=== PATIENT | female | born 1985 | race Caucasian/White ===

== ENCOUNTER 2021-05-21 21:01 | Emergency (ER) | payer MEDICAID, SELFPAY ==
[2021-05-21 21:17] VITALS: BP 134/84; PULSE 113; RESP 20; TEMP 36.4; O2SAT 97; BMI 30.1
[2021-05-21 22:03] LABS: MANUAL DIFF FLAG NO
[2021-05-21 22:04] LABS: Basophils Percent Auto 0.2 % (0-2); Eosinophils Absolute Auto 0.1 X10*3/uL (0.0-0.4); Eosinophils Percent Auto 0.6 % (0-4); Hematocrit 34.6 % (37.0-47.0); Hemoglobin 11.9 g/dl (12.0-16.0); Imm Gran Abs Auto 0.15 X10*3/uL (0.00-0.03); Imm Gran Pct Auto 1.4 % (0.0-0.4); Lymphocytes Percent Auto 9.6 % (20-40); Mean Corpuscular HGB Conc 34.4 g/dl (31.0-35.0); Mean Corpuscular Hemoglobin 28.5 pg (27.0-33.0); Mean Platelet Volume 10.2 fL (9.4-12.3); Monocytes Absolute Auto 0.8 X10*3/uL (0.1-1.2); Monocytes Percent Auto 7.8 % (2-11); Neutrophils Absolute Auto 8.5 x10*3/uL (2.0-8.3); Neutrophils Percent Auto 80.4 % (45-73); Platelet Count 238 X10*3/uL (160-400); Red Blood Count 4.17 X10*6/uL (4.20-5.50); White Blood Count 10.6 X10*3/uL (4.8-10.8)
[2021-05-21 22:08] LABS: Appearance Urine HAZY; Color Urine YELLOW; Glucose Urine UA NEG (NEG); Leukocyte Esterase Urine NEG (NEG); Nitrite Urine NEG (NEG); Specific Gravity - Urine 1.025 (1.005-1.025); UACC Culture Trigger NO; Urine Blood 2+ (NEG); Urine Ketones 15 MG/DL (NEG); Urine Protein 2+ MG/DL (NEG-TRACE)
[2021-05-21 22:12] LABS: Bacteria Urine 3+ /LPF; Granular Casts Urine 0-2 /LPF; Squamous Epithelial Cell Urine 2+ /LPF; WBC Urine 0-2 /HPF (0-4)
[2021-05-21 22:21] LABS: Alanine Aminotransferase 22 U/L (0-31); Albumin Level 4.3 g/dL (3.5-5.0); Alkaline Phosphatase 53 U/L (39-117); Anion Gap 14 (12-20); Aspartate Amino Transferase 25 U/L (5-31); Bilirubin Total 0.5 mg/dL (0.0-1.0); Blood Urea Nitrogen 8 mg/dL (9-16); Calcium 9.8 mg/dL (8.4-10.2); Carbon Dioxide 25 mmol/L (22-29); Chloride 102 mmol/L (96-108); Creatinine Clr Calc Pharmacy 92.8; Estimated Glomerular Filt Rate > 60; Glucose Random 115 mg/dL (60-115); Potassium 3.5 mmol/L (3.3-5.1); Sodium 137 mmol/L (135-145); Total Protein 7.3 g/dL (6.5-8.0)
--- NOTE | 2021-05-21 23:39 | ED_ITS ---
HPI - Nausea/Vomiting/Diarrhea General Chief complaint: Nausea/Vomiting/Diarrhea Stated complaint: Vomiting/Diarrhea Time Seen by Provider: 05/21/21 22:55 Source: patient Mode of arrival: ambulatory Limitations: no limitations History of Present Illness HPI Narrative: 35-year-old female, (3 children, 4 miscarriages, 1 therapeutic ) NITHIN 11/28/2021, 12 weeks 5 days based on NITHIN who presents emergency department for evaluation of 3 days nausea, vomiting and diarrhea. The patient states that any time she eats or drinks she vomits and then has diarrhea. She states that she has had more than 5 episodes of vomiting and more than 5 episodes of diarrhea per day. She states that 2 days prior she was sitting on the toilet having diarrhea and she rapidly turned her head to vomit into the bathtub. When she did this she had immediate pain in the left side of her neck. Since that time she has had constant, sharp, pain in her left neck, left shoulder and the back of her left head. She states this pain is 10/10. She has been taking Tylenol for the pain with only minimal relief. She states that any time she moves her head the pain is worse. She states she does have abdominal pain when she vomits otherwise has not had significant abdominal pain. She has not noticed any vaginal bleeding or vaginal discharge. Related Data Previous Rx's Medication Instructions Recorded promethazine 25 mg tablet 25 mg PO Q6H PRN #20 tab 05/22/21 Allergies Allergy/AdvReac Type Severity Reaction Status Date / Time No Known Allergies Allergy Mild UNKNOWN Unverified 11/30/19 16:26 Review of Systems Review of Systems: Yes all other systems are reviewed and are negative [facility] Past Medical History [facility] Narrative: Past medical history: Gestational diabetes. Past surgical history: Appendectomy. Social history: She denies tobacco, alcohol and drug use. Medical History Miscarriage No known health problems Social History Social History Advance Directives: No Patient : Yes Physical Exam Vital Signs: Vital Signs: Last Vital Signs Temp 99.3 F 05/22/21 02:02 Pulse 104 H 05/22/21 02:02 Resp 18 05/22/21 02:02 BP 134/86 05/22/21 02:02 Pulse Ox 98 05/22/21 02:02 BMI result Body Mass Index 30.1 Const: General: cooperative and no acute distress Orientation/consciousness: oriented to person and oriented to place Limitations: no limitations HENMT: Head: Yes normal to inspection, Yes normocephalic and Yes atraumatic Ears: external ears normal General nose exam: Normal external nose present Face and sinus: Yes normal facial exam Mouth: Normal oral and palatal mucosa present Throat: Yes posterior oropharynx normal Eyes: General: appearance normal, both eyes and all related structures Pupils: Equal, round and reactive pupils present Neck: Other: Tender left trapezius muscle with spasm Neck: Yes normal visual inspection, Yes no lymphadenopathy and Yes trachea midline Chest: Chest palpation & inspection: normal inspection of the chest and normal palpation of entire chest wall Resp: Effort & Inspection: normal respiratory effort and able to speak in complete sentences Auscultation: clear to auscultation bilaterally Cardio: Rate: regular rate Rhythm: regular rhythm Heart sounds: S1 normal heart sound present, S2 normal heart sound present and no murmurs GI: Inspection: Yes normal to inspection Palpation (GI): Soft to palpation, nontender and no guarding Auscultation: normal bowel sounds : General: Yes no CVA tenderness Back/Spine/Pelvis: Back: no CVA tenderness Skin: General skin exam: no rashes or lesions noted Neuro: General: oriented to person and oriented to place Cranial nerves: Yes CN's II-XII intact bilaterally and Yes Equal, round and reactive pupils present Cognition (Neuro): normal cognition Motor exam (neuro): 5/5 motor strength present throughout Extrem: General: Yes normal to inspection Psych: Appearance: grossly normal Speech and movement: Normal speech and movement present Affect: normal affect Attitude: cooperative Thought process: Normal thought process present Thought content: Normal thought content present Course Course Course Narrative: 35-year-old female, 12 weeks 5 days based on NITHIN of 11/28/2021 who presents emergency department for evaluation nausea, multiple episodes of vomiting and diarrhea times 4 days, left neck injury 2 days prior. The patient has tried Zofran and regular in but has had no relief of her nausea and vomiting. The patient has not been on antibiotics recently has not traveled outside of the country. Initial vital signs revealed an elevated pulse of 113 otherwise unremarkable. Physical examination did reveal left trapezius muscle tenderness consistent with a muscle strain otherwise exam is normal. I did order laboratory evaluation to include CBC, CMP and urinalysis. I will also check C diff and stool culture on the patient. Patient was also ordered to get Phenergan 12.5 mg IV, Benadryl 25 mg IV and lactated Ringer's x2 L. 2347: Laboratory evaluation: Anemia with an H&H of 11.9 and 34.6, normal platelet count [id number]. Comprehensive metabolic panel was normal. Urinalysis revealed 2+ protein, 2+ blood, microscopic revealed 1-4 RBCs, 0-2 WBCs, 2+ squamous cells, 3+ bacteria, this is a non clean catch urine. Patient's presentation is most likely consistent with associated vomiting and dehydration, however her diarrhea also is concerning for possible viral gastritis verses food poisoning. 0235: Patient's C diff was negative. Patient is feeling better. She states that her nausea is returning, she was given a 2nd dose of Phenergan 12.5 mg IV. The patient will be discharged with a prescription for Phenergan orally. She was given printed and verbal instructions and discharged home. Prior to going h ome she was able to drink fluid any crackers. MDM - Nausea/Vomiting/Diarrhea Lab Data Result diagrams: 05/21/21 21:58 05/21/21 21:58 Labs: Lab Results 05/21/21 05/21/21 05/21/21 Range/Units 21:58 21:58 22:02 WBC 10.6 (4.8-10.8) X10*3/uL RBC 4.17 L (4.20-5.50) X10*6/uL Hgb 11.9 L (12.0-16.0) g/dl Hct 34.6 L (37.0-47.0) % MCV 83.0 (80.0-98.0) fL MCH 28.5 (27.0-33.0) pg MCHC 34.4 (31.0-35.0) g/dl RDW 14.0 (11.0-16.0) % Plt Count 238 (160-400) X10*3/uL MPV 10.2 (9.4-12.3) fL Immature Gran % (Auto) 1.4 H (0.0-0.4) % Neut % (Auto) 80.4 H (45-73) % Lymph % (Auto) 9.6 L (20-40) % [place] % (Auto) 7.8 (2-11) % Eos % (Auto) 0.6 (0-4) % Baso % (Auto) 0.2 (0-2) % Lymph # (Auto) 1.0 L (1.2-4.9) X10*3/uL [place] # (Auto) 0.8 (0.1-1.2) X10*3/uL Eos # (Auto) 0.1 (0.0-0.4) X10*3/uL Baso # (Auto) 0.0 (0.0-0.2) X10*3/uL Abs Immat Gran (auto) 0.15 H (0.00-0.03) X10*3/uL Absolute Neuts (auto) 8.5 H (2.0-8.3) x10*3/uL Absolute Nucleated RBC 0.000 (0.0-0.012) X10*3/uL Nucleated RBC % (auto) 0.0 (0.0-0.2) /100WBC Sodium 137 (135-145) mmol/L Potassium 3.5 (3.3-5.1) mmol/L Chloride 102 (96-108) mmol/L Carbon Dioxide 25 (22-29) mmol/L Anion Gap 14 (12-20) BUN 8 L (9-16) mg/dL Creatinine 0.72 (0.5-1.4) mg/dL Estim Creat Clear Calc 92.8 Estimated GFR > 60 Random Glucose 115 (60-115) mg/dL Calcium 9.8 (8.4-10.2) mg/dL Total Bilirubin 0.5 (0.0-1.0) mg/dL AST 25 (5-31) U/L ALT 22 (0-31) U/L Alkaline Phosphatase 53 (39-117) U/L Total Protein 7.3 (6.5-8.0) g/dL Albumin 4.3 (3.5-5.0) g/dL Urine Color YELLOW Urine Appearance HAZY Urine pH 6.0 (5.0-8.0) Ur Specific [place] 1.025 (1.005-1.025) Urine Protein 2+ H (NEG-TRACE) MG/DL Urine Glucose (UA) NEG (NEG) MG/DL Urine Ketones 15 (NEG) MG/DL Urine Blood 2+ H (NEG) Urine Nitrite NEG (NEG) Ur Leukocyte Esterase NEG (NEG) Urine RBC 1-4 (0) /HPF Urine WBC 0-2 (0-4) /HPF Ur Squamous Epith Cells 2+ /LPF Urine Bacteria 3+ /LPF Granular Casts 0-2 /LPF C. difficile Tox B Gene (Negative) 05/22/21 Range/Units 00:34 WBC (4.8-10.8) X10*3/uL RBC (4.20-5.50) X10*6/uL Hgb (12.0-16.0) g/dl Hct (37.0-47.0) % MCV (80.0-98.0) fL MCH (27.0-33.0) pg MCHC (31.0-35.0) g/dl RDW (11.0-16.0) % Plt Count (160-400) X10*3/uL MPV (9.4-12.3) fL Immature Gran % (Auto) (0.0-0.4) % Neut % (Auto) (45-73) % Lymph % (Auto) (20-40) % [place] % (Auto) (2-11) % Eos % (Auto) (0-4) % Baso % (Auto) (0-2) % Lymph # (Auto) (1.2-4.9) X10*3/uL [place] # (Auto) (0.1-1.2) X10*3/uL Eos # (Auto) (0.0-0.4) X10*3/uL Baso # (Auto) (0.0-0.2) X10*3/uL Abs Immat Gran (auto) (0.00-0.03) X10*3/uL Absolute Neuts (auto) (2.0-8.3) x10*3/uL Absolute Nucleated RBC (0.0-0.012) X10*3/uL Nucleated RBC % (auto) (0.0-0.2) /100WBC Sodium (135-145) mmol/L Potassium (3.3-5.1) mmol/L Chloride (96-108) mmol/L Carbon Dioxide (22-29) mmol/L Anion Gap (12-20) BUN (9-16) mg/dL Creatinine (0.5-1.4) mg/dL Estim Creat Clear Calc Estimated GFR Random Glucose (60-115) mg/dL Calcium (8.4-10.2) mg/dL Total Bilirubin (0.0-1.0) mg/dL AST (5-31) U/L ALT (0-31) U/L Alkaline Phosphatase (39-117) U/L Total Protein (6.5-8.0) g/dL Albumin (3.5-5.0) g/dL Urine Color Urine Appearance Urine pH (5.0-8.0) Ur Specific [place] (1.005-1.025) Urine Protein (NEG-TRACE) MG/DL Urine Glucose (UA) (NEG) MG/DL Urine Ketones (NEG) MG/DL Urine Blood (NEG) Urine Nitrite (NEG) Ur Leukocyte Esterase (NEG) Urine RBC (0) /HPF Urine WBC (0-4) /HPF Ur Squamous Epith Cells /LPF Urine Bacteria /LPF Granular Casts /LPF C. difficile Tox B Gene NEGATIVE (Negative) Discharge Plan Discharge Clinical Impression: Gastroenteritis, Vomiting affecting , Acute dehydration Patient Disposition: Home, Self-Care Instructions: Nausea and Vomiting in (ED) Additional Instructions: Your laboratory evaluation was unremarkable. Your stool was tested C difficile, this test was negative. The lab will also try to grow bacteria that causes food poisoning from the stool sample that you use today, this might take 3 days. Take Tylenol (acetaminophen) 500 mg pills, 2 pills every 4 to 6 hours as needed for pain. You should make an OBGYN appointment with the [facility] at [facility] since you had significant complications in the past from your pregnancies and your . [facility] may be more appropriate for you since they are better equipped to take care of high-risk pregnancies. Take Phenergan (promethazine) 25 mg pills, 1 pill every 6 hours as needed for nausea and vomiting When you take Phenergan take Benadryl 25 mg pills, this will make you sleepy, do not drive if you take Benadryl. Follow-up with your doctor in 2 days. Please return to the emergency department if your symptoms get worse or if you develop any symptoms that are concerning to you. Prescriptions: New promethazine 25 mg tablet 25 mg PO Q6H PRN (Reason: nausea and vomiting) Qty: 20 0RF
[2021-05-22] VITALS: BP 128/80; PULSE 98; RESP 18; TEMP 37; O2SAT 98
[2021-05-22] MEDS: diphenhydrAMINE HCL 50 MG/ML VIAL 25 MG IVPUSH (00:21)
[2021-05-22] MEDS: Lactated Ringers 1,000 ML 999 ML IV (00:31)
[2021-05-22 01:40] LABS: CDiff Gene PCR NEGATIVE (Negative)
[2021-05-22 02:02] VITALS: BP 134/86; PULSE 104; RESP 18; TEMP 37.4; O2SAT 98
== END 2021-05-22 03:54 | disposition home or self-care (01) ==
PROVIDERS: Emergency Provider Emergency Medicine Emergency Medical Services
DX: O99.611 Diseases of the digestive system complicating pregnancy, first trimester (principal); R11.2 Nausea with vomiting, unspecified; E86.0 Dehydration; Z3A.12 12 weeks gestation of pregnancy; Z79.899 Other long term (current) drug therapy
CPT/HCPCS: 36415; 80053; 81001; 85025; 87045; 87046; 87493; 96361; 96374; 96375; 96376; 99284; J1200; J2550

== ENCOUNTER → 2021-06-18 11:24 | Outpatient (BNVA) | payer OTHER, SELFPAY | PROVIDERS: Visit Provider Advanced Practice Midwife | DX: Z32.01 Encounter for pregnancy test, result positive (principal); O09.299 Supervision of pregnancy with other poor reproductive or obstetric history, unspecified trimester; Z86.32 Personal history of gestational diabetes | CPT/HCPCS: 99202 ==

== ENCOUNTER 2024-03-31 11:22 | Emergency (ER) | payer OTHER, SELFPAY ==
--- NOTE | ~2024-03-31 | XR_ITS ---
EXAMINATION: XR ABDOMEN 1 VIEW (KUB) HISTORY: pain COMPARISON: There are no prior studies for comparison. FINDINGS: 2 supine views of the abdomen are submitted. The bowel gas pattern is unremarkable, without evidence of mechanical obstruction. There are surgical clips in the right lower quadrant and right hemipelvis. No abnormal calcifications are identified. There are no abnormal soft tissue masses. The bones are intact. XR/XR KUB IMPRESSION: Unremarkable bowel gas pattern. Electronically signed by: Edson Castro MD 03/31/2024 12:14 PM [facility]
[2024-03-31 11:38] VITALS: BP 138/76; PULSE 89; RESP 16; TEMP 36.7; O2SAT 100; BMI 29.7
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
[2024-03-31 12:00] LABS: MANUAL DIFF FLAG NO
[2024-03-31 12:08] LABS: Basophils Percent Auto 0.4 % (0-2); Eosinophils Absolute Auto 0.1 X10*3/uL (0.0-0.4); Eosinophils Percent Auto 1.1 % (0-4); Hematocrit 34.4 % (37.0-47.0); Hemoglobin 12.1 g/dl (12.0-16.0); Imm Gran Abs Auto 0.04 X10*3/uL (0.00-0.03); Imm Gran Pct Auto 0.5 % (0.0-0.4); Lymphocytes Absolute Auto 1.7 X10*3/uL (1.2-4.9); Lymphocytes Percent Auto 20.3 % (20-40); Mean Corpuscular HGB Conc 35.2 g/dl (31.0-35.0); Mean Corpuscular Hemoglobin 29.4 pg (27.0-33.0); Mean Corpuscular Volume 83.5 fL (80.0-98.0); Mean Platelet Volume 10.4 fL (9.4-12.3); Monocytes Absolute Auto 0.5 X10*3/uL (0.1-1.2); Monocytes Percent Auto 6.3 % (2-11); Neutrophils Absolute Auto 6.1 x10*3/uL (2.0-8.3); Neutrophils Percent Auto 71.4 % (45-73); Platelet Count 272 X10*3/uL (160-400); Red Blood Count 4.12 X10*6/uL (4.20-5.50); Red Cell Distribution Width 12.6 % (11.0-16.0); White Blood Count 8.6 X10*3/uL (4.8-10.8)
[2024-03-31 12:25] LABS: Alanine Aminotransferase 27 U/L (0-31); Albumin Level 4.6 g/dL (3.5-5.0); Alkaline Phosphatase 70 U/L (39-117); Anion Gap 11 (12-20); Aspartate Amino Transferase 24 U/L (5-31); Bilirubin Total 0.3 mg/dL (0.0-1.0); Blood Urea Nitrogen 13 mg/dL (9-16); Calcium 9.2 mg/dL (8.4-10.2); Carbon Dioxide 26 mmol/L (22-29); Chloride 108 mmol/L (96-108); Creatinine Clr Calc Pharmacy 80.8; Estimated Glomerular Filt Rate > 60; Glucose Random 96 mg/dL (60-115); Lipase 31 U/L (8-78); Sodium 141 mmol/L (135-145)
[2024-03-31 12:40] LABS: HCG Quantitative < 2 mIU/mL; TSH reflex Free T4 0.46 uIU/mL (0.32-4.0)
[2024-03-31 18:13] LABS: Appearance Urine Cloudy; Color Urine Yellow; Glucose Urine UA Negative (Negative); Leukocyte Esterase Urine Negative (Negative); Nitrite Urine Negative (Negative); Specific Gravity - Urine 1.015 (1.005-1.025); Urine Blood Negative (Negative); Urine Ketones Negative (Negative); Urine Protein Negative (Neg-Trace)
[2024-03-31 18:14] LABS: UPreg QC Valid YES; Urine Pregnancy NEGATIVE (NEGATIVE)
[2024-03-31 18:26] LABS: Bacteria Urine 1+ (None Seen); Hyaline Casts Urine 0-2 /LPF (0-2); RBC Urine 0-2 /HPF (0-2); WBC Urine 0-5 /HPF (0-5)
[2024-03-31 19:37] VITALS: BP 120/79; PULSE 77; RESP 18; TEMP 37.3; O2SAT 99
[2024-03-31 19:43] VITALS: BP 120/79; PULSE 77; RESP 18; TEMP 37.3; O2SAT 99
== END 2024-03-31 19:43 | disposition home or self-care (01) ==
PROVIDERS: Physician Assistant; Physician Assistant Medical; Emergency Provider Internal Medicine
DX: R11.0 Nausea (principal); R14.0 Abdominal distension (gaseous); R10.9 Unspecified abdominal pain
CPT/HCPCS: 36415; 74018; 80053; 81001; 81025; 83690; 84443; 84702; 85025; 99283

== ENCOUNTER → 2024-03-31 11:41 | Outpatient (BNV) | payer OTHER, SELFPAY | PROVIDERS: Visit Provider Radiology Diagnostic Radiology | DX: R52 Pain, unspecified (principal) | CPT/HCPCS: 74018 ==